=== PATIENT | male | born 1950 | race Caucasian/White ===

== ENCOUNTER 2018-06-30 14:48 | Emergency (ER) | payer MEDICARE, BC ==
[~2018-06-30] VITALS: Ht 180.3 cm; Wt 122.7 kg
[2018-06-30 14:54] VITALS: TEMP 96.7
[2018-06-30] MEDS ORDERED: LEVOXYL0.075 MG PO (16:38)
[2018-06-30] MEDS ORDERED: HYZAAR 25 MG-101 TAB PO (16:38)
[2018-06-30] MEDS ORDERED: ZOCOR 40MG40 MG PO (16:38)
[2018-06-30] MEDS ORDERED: NORCO 325 MG-7.1 TAB PO (18:00)
[2018-06-30 18:10] VITALS: BP 113/57; PULSE 87
== END 2018-06-30 18:27 | disposition home or self-care (01) ==
LOC: COL.ER 14:48
DX: S82.291A Other fracture of shaft of right tibia, initial encounter for closed fracture (principal); E78.5 Hyperlipidemia, unspecified; E03.9 Hypothyroidism, unspecified; W23.0XXA Caught, crushed, jammed, or pinched between moving objects, initial encounter; Y92.009 Unspecified place in unspecified non-institutional (private) residence as the place of occurrence of the external cause
CPT/HCPCS: J2270; J2405; J2550; J7030

== ENCOUNTER → 2018-09-28 | Outpatient (CLI) | payer MEDICARE, BC ==
[~2018-09-28] MED LIST: HYZAAR 25 MG-101 TAB PO; LEVOXYL0.075 MG PO; NORCO 325 MG-7.1 TAB PO; ZOCOR 40MG40 MG PO
== END ==
LOC: COL.VAS 12:08
DX: M79.604 Pain in right leg (principal); Z87.81 Personal history of (healed) traumatic fracture

== ENCOUNTER 2019-05-25 05:55 | Day surgery (SDC) | payer MEDICARE, BC ==
[~2019-05-25] VITALS: Ht 180.3 cm; Wt 98.9 kg
[2019-05-25 06:13] VITALS: BP 164/81; PULSE 51; TEMP 97.3
[2019-05-25 07:55] VITALS: BP 124/72; PULSE 58; TEMP 97.4
--- NOTE | 2019-05-25 07:55 | NUR ---
Pt returns from endo procedure via cart. Pt ambulates from cart to recliner with RN assist. Monitors on and alarms set. Call light within reach. Report received from MATTHEW Daniel. Pt alert and oriented. Pt requests muffin, crackers, applesauce, and grape juice. Pt has no complaints of pain or nausea. present in room.
[2019-05-25 08:00] VITALS: BP 133/74; PULSE 55
[2019-05-25 08:15] VITALS: BP 134/78; PULSE 58
--- NOTE | 2019-05-25 08:15 | NUR ---
Pt taking food and drink well. Pt voices no complaints.
[2019-05-25 08:30] VITALS: BP 133/64; PULSE 54
--- NOTE | 2019-05-25 08:30 | NUR ---
Discharge instructions given to patient and . All questions answered to their satisfaction. Handed to them are a thank you card, discharge instructions, diagnosis information, health summary, discharge med sheet, and procedural photos.
--- NOTE | 2019-05-25 08:45 | NUR ---
Pt transferred out of hospital via wheelchair and this RN to private vehicle driven by .
== END 2019-05-25 08:45 | disposition home or self-care (01) ==
LOC: SDCO 05:55
DX: Z12.11 Encounter for screening for malignant neoplasm of colon (principal); K57.30 Diverticulosis of large intestine without perforation or abscess without bleeding; K64.0 First degree hemorrhoids; I10 Essential (primary) hypertension; G47.33 Obstructive sleep apnea (adult) (pediatric); Z90.49 Acquired absence of other specified parts of digestive tract
CPT/HCPCS: J2704; J7030